=== PATIENT | female | born 1955 | race Caucasian/White ===

== ENCOUNTER → 2017-07-26 | Outpatient (CLI) | payer BC ==
[~2017-07-26] MED LIST: ALLEGRA PO; B COMPLEX1 TAB PO; BENICAR HCT 20-1 TA1 PO; BENICAR PO; BENICAR20 MG; CALCIUM + D 6001 TA1 PO; CALCIUM 600 + D1 TA1 PO; CALCIUM 600 + D1 TAB PO; CELEBREX50 MG PO; FOLBIC RF TABL1 EACH; FOLIC ACID PO; HCTZ PO; MULTIPLE VITAMI1 T11 PO; NEXIUM PO; SUDAFED PO; VITAMIN B-121000 MCG PO; VITAMIN D1000 UNI2 PO
--- NOTE | ~2017-07-26 | MY30 ---
[facility] A Service of [facility] RADIOLOGY TEXT RESULTS PATIENT: ANURAG SHAH LOCATION: [facility] : 51 UNIT #: [id number] AGE: [address]: JIGNESH MABRY MD ([facility]) SEX: F ORDER DR: [id number] [address] [id number] O MR#: [id number] Acc #: [id number] NAME: ANURAG SHAH : 1955 SEX: F STUDY DATE/TIME: 07/26/2017 9:41 UNIT: [facility] ROOM: STUDY DESCRIPTION: MY SCREEN CHANTELL BILAT DIGITAL Attending Physician: Jignesh Mabry M.D. Referring Physician: Jignesh Mabry M.D. Ordering Physician: Jignesh Mabry M.D. Primary Care Physician: Jignesh Mabry M.D. MEDICAL IMAGING REPORT This report is preliminary unless electronic signature is present. EXAM Digital screening mammogram, 07/26/2017 HISTORY 62-year-old woman, previous left lumpectomy 2002, prior cyst aspiration. Adjuvant radiation therapy. Annual screen. COMPARISON Mammograms date to 11/09/2006, with most recent 07/13/2016. FINDINGS Digital imaging of each breast was completed utilizing screening protocol. An additional exaggerated craniocaudal view of the right breast is included. Lumpectomy markers are placed on the left breast. Review includes FDA-approved CAD device. Breast parenchyma is partially fatty replaced. Occasional benign calcification noted in each breast. Postlumpectomy stellate distortion central left breast includes several dystrophic calcifications. These have increased slightly. I see no suspicious breast mass. Postlumpectomy findings left breast are stable, with the slight increase in dystrophic calcifications noted. IMPRESSION Benign mammogram. Status post left lumpectomy. Annual screening recommended. Patients over the age of 40 are entered into a reminder system with target due date for the next mammogram. A result letter will also be sent to the patient. BIRADS: 2 Benign Finding [facility] A Service [facility] RADIOLOGY TEXT RESULTS PATIENT: ANURAG SHAH LOCATION: [facility] : 51 UNIT #: [id number] AGE: [address]: JIGNESH MABRY MD ([facility]) SEX: F ORDER DR: Dictated by... Chang Naidu M.D. THIS IS AN ELECTRONICALLY VERIFIED REPORT Chang Naidu M.D. at 07/26/2017 3:01 PM CHERYLB/isaura TD: 07/26/2017 13:46 JOB #: [id number] MEDICAL IMAGING REPORT Page 1 of 1
== END | disposition home or self-care (01) ==
LOC: SMAM 08:52
DX: Z12.31 Encounter for screening mammogram for malignant neoplasm of breast (principal); Z98.890 Other specified postprocedural states; Z92.3 Personal history of irradiation
CPT/HCPCS: G0202